=== PATIENT | female | born 1950 | race Caucasian/White ===

== ENCOUNTER 2020-02-28 16:59 | Emergency (ER) | payer BC | END 2020-02-28 17:56 | disposition home or self-care (01) | LOC: JVIRT 16:59 | DX: Z03.818 Encounter for observation for suspected exposure to other biological agents ruled out (principal) | CPT/HCPCS: C9803; G2012-GT; U0003 ==

== ENCOUNTER 2020-11-27 15:08 | Emergency (ER) | payer OTHER, BC | END 2020-11-27 18:25 | disposition home or self-care (01) | LOC: JVIRT 15:08 | DX: Z11.52 Encounter for screening for COVID-19 (principal) | CPT/HCPCS: Q3014-GT ==

== ENCOUNTER 2024-12-15 10:16 | Day surgery (SDC) | payer BC ==
[2024-12-13 14:37] VITALS: BMI 24.7
[2024-12-15 10:35] VITALS: RESP 18
[2024-12-15 12:39] VITALS: TEMP 97
[2024-12-15 12:43] VITALS: BP 144/65; PULSE 72
== END 2024-12-15 13:00 | disposition home or self-care (01) ==
LOC: FASU-ENDO 10:16
PROVIDERS: ATTEND Internal Medicine Gastroenterology
PROC: 0DJD8ZZ Inspection of Lower Intestinal Tract, Via Natural or Artificial Opening Endoscopic (ICD-10-PCS; principal; 2024-12-15 11:48)
DX: Z12.11 Encounter for screening for malignant neoplasm of colon (principal); K64.1 Second degree hemorrhoids; K64.9 Unspecified hemorrhoids; K57.30 Diverticulosis of large intestine without perforation or abscess without bleeding; Z86.0100 Personal history of colon polyps, unspecified